=== PATIENT | female | born 1940 | race Caucasian/White ===

== ENCOUNTER 2020-05-14 09:21 | Inpatient (IN) ==
--- NOTE | 2020-04-26 11:00 | PAT Medication Instructions ---
Medication Instructions Date of Service April 26, 2020 Home Medications aspirin 81 mg PO HS calcium carbonate-vitamin D3 [Calcium + D] 2 tab PO QAM enalapril maleate [Vasotec] 10 mg PO BID magnesium 250 mg PO QAM simvastatin 20 mg PO HS DO NOT take the morning of surgery calcium carbonate-vitamin D3 [Calcium + D] 2 tab PO QAM enalapril maleate [Vasotec] 10 mg PO BID magnesium 250 mg PO QAM Take evening before surgery aspirin 81 mg PO HS enalapril maleate [Vasotec] 10 mg PO BID simvastatin 20 mg PO HS Other Notes If you have any questions please call us at [phone] or [phone] or [phone] or [phone]
--- NOTE | 2020-04-29 14:21 | Anesthesiology Consultation ---
Date of Service April 29, 2020 Assessment & Plan (1) Encounter for pre-operative examination: COVID Status: As of 04/29 assessment, patient denies travel to endemic area, known exposure/sick contacts, or symptoms of COVID19. Patient instructed that they and their household members must follow strict social distancing guidelines, wear a mask in public and avoid travel for 14 days prior to surgery. Preoperative COVID19 testing to be completed prior to surgery per surgeon's arr angements (pt reports 05/07). Patient made aware to self-isolate as much as possible between COVID testing and surgery. Chart Review Chart Review: Acceptable Risk for Surgery (pending surgeon ordered PCP clearance 05/03) and Patient seen in Pre Admission Testing Teaching & Discussion Instructed NPO after midnight before surgery, except medications with 15 cc of water. Medication instructions provided according to the PAT guidelines. History Surgery Operation Date: 05/14/20 10:05 Proposed Procedures p L3-S1 Decompression and Fusion, Spinal Cord Monitoring - Byron Aguirre, Height/Weight Height: 5 ft 7 in Weight: 58.9 kg Allergies Allergy/AdvReac Type Severity Reaction Status Date / Time No Known Allergies Allergy Verified 04/16/20 14:00 Medications Home Medications Medication Instructions Recorded Confirmed Last Taken aspirin 81 mg PO HS 04/16/20 04/16/20 Unknown calcium carbonate-vitamin D3 2 tab PO QAM 04/16/20 04/16/20 Unknown [Calcium + D] enalapril maleate [Vasotec] 20 mg PO BID 04/16/20 04/29/20 Unknown magnesium 250 mg PO QAM 04/16/20 04/16/20 Unknown simvastatin 20 mg PO HS 04/16/20 04/16/20 Unknown Past Medical History Medical History (Updated 04/30/20 @ 10:29 by Flakito Booth) Anxiety Hyperlipidemia Hypertension Lumbar herniated disc Stroke Pt reports incidental finding on imaging, no known event. 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 Physical Exam Vital Signs BP: 151/74 P: 88bpm SPO2: 96% RA T: 98.7 F R: 16 Constitutional + thin ENMT Mouth: no dental restorations, no chipped teeth and no loose teeth Thyromental Distance: < 3.5 Finger Breadths (3) Mallampati Class: II Neck normal visual inspection; neck extension not limited Respiratory normal respiratory effort, lungs clear to auscultation Cardiovascular RRR, no murmur, no edema Testing Laboratory Results 04/29/20 14:35 04/29/20 14:35 PT 11.5 Seconds (9.0-12.0) 04/29/20 14:35 INR 1.1 (0.9-1.1) 04/29/20 14:35 APTT 25.3 Seconds (21.0-31.0) 04/29/20 14:35 Urine Color Yellow 04/29/20 14:35 Urine Appearance Clear (Clear) 04/29/20 14:35 Urine pH 6.0 (4.5-7.5) 04/29/20 14:35 Ur Specific [place] 1.021 (1.000-1.030) 04/29/20 14:35 Urine Protein Negative (Negative) 04/29/20 14:35 Urine Glucose (UA) Negative (Negative) 04/29/20 14:35 Urine Ketones Trace (Negative) H 04/29/20 14:35 Urine Nitrite Negative (Negative) 04/29/20 14:35 Ur Leukocyte Esterase Negative (Negative) 04/29/20 14:35 Urine WBC (Auto) 0 /hpf (0-5) 04/29/20 14:35 Urine RBC (Auto) 5-10 /hpf (0-4) H 04/29/20 14:35 U Hyaline Cast (Auto) 1-5 /lpf (0-5) 04/29/20 14:35 U Epithel Cells (Auto) 0-5 /lpf (0-5) 04/29/20 14:35 Urine Bacteria (Auto) Negative (Negative) 04/29/20 14:35 Blood Type O Positive 04/29/20 14:35 Antibody Screen NEGATIVE 04/29/20 14:35 Electrocardiogram Date: 04/29/20 Findings: + NSR @ (76bpm) Chest X-Ray Date: 04/29/20 Findings: + NAD Mild cardiomegaly.
[2020-04-29 15:14] LABS: INR 1.1 (0.9-1.1); Partial Thromboplastin Ratio 0.9; Partial Thromboplastin Time 25.3 Seconds (21.0-31.0); Prothrombin Time 11.5 Seconds (9.0-12.0)
--- NOTE | 2020-04-29 15:32 | XRay Report ---
XR chest Pre-admission PA/Lat CLINICAL HISTORY: Preoperative evaluation. COMPARISON STUDY: No previous studies for comparison. FINDINGS: Lung volumes are at the upper limits of normal. Minimal opacity along the left heart border likely reflects atelectasis. There is no consolidation to suggest pneumonia. There is no evidence fo r pulmonary edema. Mild cardiomegaly is noted. IMPRESSION: No acute cardiopulmonary findings. Mild cardiomegaly. ACT 112: Negative or not required by law. Electronically signed by: Adiel Bruce M.D. 04/29/2020 3:31 PM
[2020-04-29 15:40] LABS: Appearance Urine Clear (Clear); Bacteria Urine Automated Negative (Negative); Bilirubin Urine Negative (Negative); Blood Urine Trace (Negative); Color Urine Yellow; Epithelial Cell Urine Auto 0-5 /lpf (0-5); Glucose Urine UA Negative (Negative); Ketones Urine Trace (Negative); Leukocyte Esterase Urine Negative (Negative); Nitrite Urine Negative (Negative); Protein Urine Negative (Negative); Specific Gravity Urine 1.021 (1.000-1.030); Urobilinogen Urine Negative (Negative); WBC Urine Automated 0 /hpf (0-5)
[2020-04-29 15:53] LABS: Basophils # (auto) 0.01 K/uL (0-0.2); Basophils % (auto) 0.1 %; Eosinophils # (auto) 0.03 K/uL (0-0.5); Eosinophils % (auto) 0.3 %; Hematocrit (blood only) 41.9 % (37-47); Hemoglobin 13.7 g/dL (12.0-16.0); Immature Granulocytes # (auto) 0.01 K/uL (0.00-0.02); Immature Granulocytes % (auto) 0.1 %; Lymphocytes # (auto) 1.88 K/uL (1.2-3.4); Lymphocytes % (auto) 21.3 %; Mean Corpuscular Hemoglobin 30.7 pg (25-34); Mean Corpuscular Hgb Conc 32.7 g/dL (32-36); Mean Corpuscular Volume 93.9 fL (80-100); Mean Platelet Volume 11.1 fL (7.4-10.4); Monocytes # (auto) 0.42 K/uL (0.11-0.59); Monocytes % (auto) 4.8 %; Neutrophils # (auto) 6.49 K/uL (1.4-6.5); Neutrophils % (auto) 73.4 %; Platelet Count 207 K/uL (130-400); RDW Standard Deviation 44.6 fL (36.4-46.3); Red Blood Count 4.46 M/uL (4.2-5.4); White Blood Count 8.84 K/uL (4.8-10.8)
[2020-04-29 15:57] LABS: BUN Creatinine Ratio 23.9 (10-20); Calcium 9.2 mg/dl (8.5-10.1); Creatinine Clr Calc Pharmacy 46.9 ml/min; Est GFR (African American) 69.1; Est GFR (Non-African American) 59.6; Potassium 3.7 mmol/L (3.5-5.1)
--- NOTE | 2020-04-29 16:51 | Electrocardiogram Report ---
Test Reason : Blood Pressure : / mmHG Vent. Rate : 076 BPM Atrial Rate : 076 BPM P-R Int : 146 ms QRS Dur : 074 ms QT Int : 394 ms P-R-T Axes : -26 -04 030 degrees QTc Int : 443 ms Normal sinus rhythm Normal ECG No previous ECGs available Confirmed by Max Quick ([id number]) on 04/29/2020 4:51:34 PM Referred By: Byron Aguirre Confirmed By:Beau Quick
[~2020-05-14 09:21] MED LIST: LR 15ML/HR IV SCH; ceFAZolin 1000MG 1,000 MG/7.5 ML SYR IV SCH
[2020-05-14] MEDS ORDERED: HYDROmorphone INJ 2 MG/ML SYR/VIAL ONE (09:36)
[2020-05-14] MEDS ORDERED: MIDAZOLAM HCL 1 MG/ML 2ML VIAL ONE (09:36)
[2020-05-14] MEDS: ACETAMINOPHEN 500 MG TAB PO SCH ×2 (09:54→10:15)
[2020-05-14] MEDS: CeleBREX 200 MG CAP PO SCH ×2 (09:55→10:15)
[2020-05-14] MEDS: GABAPENTIN 300 MG CAP PO SCH ×2 (09:55→10:15)
[2020-05-14] MEDS ORDERED: PROPOFOL IV EMULSION 10 MG/ML 20 ML VIAL IV ONE (12:16)
[2020-05-14] MEDS ORDERED: ONDANSETRON INJ 2 MG/ML 2 ML VIAL ONE (12:16)
[2020-05-14] MEDS ORDERED: DEXAMETHASONE SOD INJ 4 MG/ML VIAL ONE (12:16)
[2020-05-14] MEDS ORDERED: LIDOCAINE HCL 2% 2 ML VIAL/AMP(20MG/ML) INFIL ONE (12:16)
[2020-05-14] MEDS ORDERED: ROCURONIUM BROMIDE 10 MG/ML 5 ML VIAL IV ONE (12:16)
--- NOTE | 2020-05-14 12:18 | History & Physical Bridge Note ---
Date of Service May 14, 2020 History & Physical Bridge Note I have examined the patient, reviewed the History & Physical and in the interval since the performance of the History & Physical I have noted the following changes of clinical significance: no changes noted
--- NOTE | 2020-05-14 12:19 | History & Physical Report ---
Date of Service May 14, 2020 Assessment & Plan (1) Neurogenic claudication due to lumbar spinal stenosis: Admission and Anticipated Discharge Date Admission Date: L3-S1 decompression fusion History of Present Illness Chief Complaint: Back and bilateral leg pain Primary Care Provider: Erica Uribe This is a 72-year-old female who presents with chronic persistent back and leg pain. Failing course of nonoperative care she is here for the above-mentioned procedure. Allergies Allergy/AdvReac Type Severity Reaction Status Date / Time No Known Allergies Allergy Verified 04/16/20 14:00 Home Medications Medication Instructions Recorded Confirmed Type aspirin 81 mg PO HS 04/16/20 05/14/20 History calcium carbonate-vitamin D3 2 tab PO QAM 04/16/20 05/14/20 History [Calcium + D] enalapril maleate [Vasotec] 20 mg PO BID 04/16/20 05/14/20 History magnesium 250 mg PO QAM 04/16/20 05/14/20 History simvastatin 20 mg PO HS 04/16/20 05/14/20 History Past Med/Surg History Medical History (Updated 05/14/20 @ 12:19 by Byron Aguirre DO) Anxiety Hyperlipidemia Hypertension Lumbar herniated disc Stroke Pt reports incidental finding on imaging, no known event. 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 Hx of cataract surgery right and left Social History Smoking Status: Never smoker Second Hand Exposure: No; Do You Dip or Chew Tobacco: No; Tobacco Cessation Education Requested by Patient: No Hx Alcohol Use: No Hx Substance Use: No Preferred Language: Arabic Communication Ability: Effective Brand Marketing Specialist Required: No Beliefs That Will Affect Care: None Current Living Situation: Spouse Other Information That Helps Us Care for You: No Feels Safe at Home: Yes Safety Concerns: Feels Safe At This Time Assistive Devices: Glasses Physical Exam Physical Exam: Patient is alert and oriented Heart regular rate and rhythm Lungs clear to auscultation Results & Data ([facility]) Vital Signs (Past 12 Hours) Vital Signs Temp Pulse Resp BP Pulse Ox 05/14/20 09:57 36.8 C 74 20 162/85 H 99
[2020-05-14] MEDS ORDERED: BACITRACIN INJ 50,000 UNIT VIAL ONE (12:44)
[2020-05-14] MEDS ORDERED: BUPIVACAINE/EPINEPHRINE 0.5% MPF 1:200,000 30 ML VIAL ONE (12:44)
[2020-05-14] MEDS ORDERED: ATROPINE SULFATE 0.1 MG/ML 10ML SYR IV PRN (13:01)
[2020-05-14] MEDS ORDERED: ONDANSETRON INJ 2 MG/ML 2 ML VIAL IV PRN ×2 (13:01→17:06)
[2020-05-14] MEDS ORDERED: ePHEDrine sulfate 50 MG/ML AMP IV PRN (13:01)
[2020-05-14] MEDS ORDERED: fentaNYL citrate 100 MCG/2 ML VIAL IV PRN (13:01)
[2020-05-14] MEDS ORDERED: HYDROmorphone INJ 1 MG/ML SYRINGE IV PRN ×2 (13:01→17:06)
[2020-05-14] MEDS ORDERED: ALBUMIN HUMAN 5% 12.5 GM/250 ML VIAL IV ONE ×2 (13:11→14:34)
[2020-05-14] MEDS ORDERED: FLOSEAL HEMOSTATIC MATRIX 10ML TOP ONE (15:18)
[2020-05-14] MEDS ORDERED: NEOSTIGMINE METHYLSULFATE 1 MG/ML 10ML VIAL ONE (15:19)
[2020-05-14] MEDS ORDERED: GLYCOPYRROLATE 0.2 MG/ML VIAL ONE (15:19)
--- NOTE | 2020-05-14 15:25 | Operative Report ---
Post Operative Report Pre & Post Diagnosis Operation Date: 05/14/20 10:55 Pre-Op Diagnosis: Neurogenic claudication due to lumbar spinal stenosis Spondylolisthesis L4-L5 Herniated nucleus pulposus L4-L5 Post-Op Diagnosis: Same I identified the patient and participated in the time-out.: Yes Procedure Operation Date: 05/14/20 10:55 Actual Procedures #1 lumbar compression with bilateral medial facetectomies and foraminotomies L3- 4 L4-5 L5-S1. #2 posterior spinal fusion L3-4 L4-5 L5-S1. #3 placement posterior segmental instrumentation L3-S1. #4 interbody fusion L4-5. #5 placement peek cage 12 x 22 mm at L4-5 #6 placement locally harvested morselized autograft in the posterior lateral gutters. #7 placement infuse collagen sponge, master graft in the posterior lateral gutters and ostial amp interbody space. Surgeon Byron Aguirre, Appliance Repairer Kishor Bran Estimated Blood Loss 250 Findings Consistent with Post-Op Diagnosis Specimens None Indications This is a 80-year-old female presents with above-mentioned diagnosis after failing course of nonoperative care she is here for the above-mentioned procedure. Description of Procedure Patient was met with identified informed consent obtained. Patient was then taken to the operative suite underwent an patient placed in a prone position on Yonathan table on top of the Cuco frame. All bony prominences well-padded eyes inspected to ensure no external pressure placed upon the. This point the lumbar spine was prepped and draped in normal sterile fashion. Sharp dissection with the assistance of Bovie cautery was performed down to and exposing the lamina and transverse processes of L3-L4-L5 and sacral ala bilaterally. From a caudal cephalad fashion complete laminectomy of L5 L4 L3 is performed including bilateral medial facetectomies and foraminotomies addressing severe spinal stenosis. Pedicle screws were then placed in L3-L4-L5 and S1 levels bilaterally with assistance of fluoroscopy and appropriate size clay placed. By way of a transforaminal approach on the left complete discectomy of L4-5 was performed endplates curetted to subcortical bleeding bone. A 12 x 22 mm peek cage filled with osteobone graft was then tapped in position. Rods were then locked in final position bilaterally. The transverse processes of L3-L4-L5 and sacral ala burred to subcortical bleeding bone. Infuse collagen sponge master graft local autograft was then placed in posterior gutters. 15 round VIVIANA drain inserted. Incision was then closed with 1 Vicryl the fascia 2-0 Vicryl subcutaneously and 4 Monocryl for final skin closure. Steri-Strip sterile dressings placed. Patient will continue PACU stable condition. Please note spinal cord monitoring was utilized that the procedure no changes noted. Lastly Kishor lowry was present at the entire procedure involved in patient positioning complex portions of the surgery and final skin closure. I attest to the content of the Intraoperative Record and any orders documented therein. Any exceptions are noted below.
--- NOTE | 2020-05-14 15:32 | Fluoroscopy Report ---
FL lumbar spine 2-3V CLINICAL HISTORY: L3-S1 DECOMPRESSION AND FUSION COMPARISON STUDY: None. FLUOROSCOPY TIME: 27 seconds. FINDINGS: 2 fluoroscopic spot images of the lumbar spine demonstrate posterior decompression and fusi on from L3 through S1 with pedicle screws and rods. The hardware appears intact. IMPRESSION: Fluoroscopy provided for L3-S1 decompression and fusion ACT 112: Negative or not required by law. Electronically signed by: Jamar Larsen M.D. 05/14/2020 3:31 PM
--- NOTE | 2020-05-14 16:49 | Anesthesiology Progress Note ---
Date of Service May 14, 2020 Anesthesia Post Procedure Vital Signs Vital Signs: Temp Pulse Pulse Resp BP Pulse Ox 05/14/20 16:45 80 18 151/69 H 98 05/14/20 16:35 36.5 C 89 15 169/76 H 98 05/14/20 16:25 77 15 143/60 H 99 05/14/20 16:15 84 16 165/81 H 99 05/14/20 16:06 36.7 C 77 14 149/77 H 99 05/14/20 09:57 36.8 C 74 20 162/85 H 99 Pain Intensity Lower Back: Pain Intensity: 3 Transfer of Care Handoff Completed per policy Notes Mental Status: alert / awake / arousable Patient Amnestic to Procedure: Yes Nausea / Vomiting: adequately controlled Pain: adequately controlled Airway Patency, RR, SpO2: stable & adequate BP & HR: stable & adequate Hydration State: stable & adequate Anesthetic Complications: no major complications apparent
[2020-05-14] MEDS ORDERED: ONDANSETRON 4 MG OD TAB PO PRN (17:06)
[2020-05-14] MEDS ORDERED: SOD PHOSPHATE/SOD BIPHOSPHATE ENEMA 132 ML BTL PR PRN (17:06)
[2020-05-14] MEDS ORDERED: HYDROmorphone INJ 0.5 MG/0.5 ML SYR IV PRN (17:06)
[2020-05-14] MEDS ORDERED: bisacodyL 10 MG SUPP PR PRN (17:06)
[2020-05-14] MEDS ORDERED: diphenhydrAMINE Capsule 25 MG CAP PO PRN (17:06)
[2020-05-14] MEDS ORDERED: NALOXONE HCL 0.4 MG/1 ML VIAL/CARP IV PRN (17:06)
[2020-05-14] MEDS ORDERED: ACETAMINOPHEN 500 MG TAB PO PRN (17:06)
[2020-05-14] MEDS ORDERED: MAGNESIUM HYDROXIDE SUSP 30 ML UDC PO PRN (17:06)
[2020-05-14] MEDS ORDERED: oxyCODONE HCL IR 5 MG TAB (IMMEDIATE RELEASE) PO PRN (17:06)
[2020-05-14] MEDS ORDERED: hydrOXYzine HCl 25 MG TAB PO PRN (17:06)
[2020-05-14] MEDS ORDERED: DO NOT ADMINISTER PNEUMOCOCCAL VACCINE PRN (17:06)
[2020-05-14] MEDS ORDERED: FAMOTIDINE 20 MG TAB PO PRN (17:06)
[2020-05-14] MEDS ORDERED: PROMETHAZINE HCL 12.5 MG in SODIUM CHLORIDE 0.9% 50 ML IV PRN (17:06)
[2020-05-14] MEDS ORDERED: traMADol HCL 50 MG TABLET PO PRN (17:06)
[2020-05-14] MEDS ORDERED: METOCLOPRAMIDE HCL INJ 5 MG/ML 2 ML VIAL IV PRN (17:06)
[2020-05-14] MEDS ORDERED: LORazepam 0.5 MG TAB PO PRN (17:06)
[2020-05-14] MEDS ORDERED: ALUMINUM/MAGNESIUM SUSP 30 ML UDC PO PRN (17:06)
[2020-05-14] MEDS ORDERED: DO NOT ADMINISTER FLU VACCINE PRN (17:06)
[2020-05-14] MEDS ORDERED: ACETAMINOPHEN 1,000 MG/100 ML VIAL IV PRN (17:06)
[2020-05-14] MEDS ORDERED: LORazepam 0.5 MG/1 ML VIAL IV PRN (17:06)
[2020-05-14] MEDS: SODIUM CHLORIDE 0.9% 1000ML 1,000 ML IV SCH (18:03)
--- NOTE | 2020-05-14 18:08 | Consultation ---
Date of Consultation May 14, 2020 Assessment & Plan (1) Neurogenic claudication due to lumbar spinal stenosis: Status post L3-S1 decompression fusion by Dr. Aguirre POD #0 EBL 250 mL; VIVIANA drain 145 mL Tolerated procedure well, postop drowsiness Pain/wound management per Ortho Activity and therapy as directed by Ortho Encourage incentive spirometry and wean O2 as able Monitor H&H (2) Hypertension: BP 142/80 Continue enalapril Controlled and monitor (3) Hyperlipidemia: Continue statin (4) Elevated serum glucose: preop glucose 164 screen for DM with a1c in a.m. (5) Stroke: hx of remote cva, found on imaging No residual deficit Continue ASA and statin (6) DVT prophylaxis: SCD/TEDS, ASA Disposition: admit to medical, per primary Follow up: Dr. Uribe, [place], PA, upon discharge Pt was seen and examined in collaboration with Dr. Alcantar, please see addendum Thank you for this consultation. We will follow the patient with you during their hospital stay. You can reach a [facility] via pager @ [phone]. Supervising Physician Co-Signing Physician Notes Patient is a 80-year-old female with history of hypertension, dyslipidemia and other medical problems was seen and examined postop after having lumbar surgery for neurogenic claudication due to lumbar spinal stenosis by Dr. Aguirre. She offers no complaints. Pain at surgical site is controlled. Reports poor appetite currently. Please review HPI for complete details. On exam patient is thin, frail, no apparent distress, lungs are clear to auscultation, normal br eath sounds, S1-S2, no murmur, abdomen soft, nontender, normal bowel sounds, no pedal edema, back--surgical site in dressing,+ drain, alert, awake, oriented, complete neurological exam is not performed due to postoperative state. Patient is consulted for postop medical management for hypertension, dyslipidemia, elevated glucose levels. Agree with continuing home medications for hypertension, dyslipidemia. Will check HbA1c to rule out diabetes. Wean off of oxygen as able. Continue incentive spirometry. Monitor for postop anemia with CBC. Continue bowel regimen to prevent constipation. Wound care, activity, DVT prophylaxis and pain control as per primary team. Advance diet as tolerated. I personally reviewed the record. Patient is interviewed and examined at bedside. Patient's care is coordinated with Paula Espinoza PA-C. Please refer to the documentation above for details of patient's presentation and for discussion of other issues. History of Present Illness Requesting Physician: Dr. Aguirre Reason for Consultation: Postop medical management Attending Physician: Byron Aguirre, DO History of Present Illness This is a 80-year-old female who has significant past medical history of HTN, HLD, osteoporosis, history of CVA incidental finding on imaging without residual deficit who presents for elective lumbar procedure by Dr. Aguirre. She underwent L3-S1 decompression fusion. She is very drowsy but otherwise tolerated the procedure well. Currently she denies any complaints or pain. She denies fever, chills, sweats, lightheadedness, nasal, chest pain, shortness breath, cough, nausea, vomiting, abdominal pain. She has Crum catheter in place. Nurses at bedside and offers no concerns. Patient has prior history of cataract surgery which nurse states took her several hours to awake from anesthesia. Patient is drowsy but answers all questions appropriately. In regards to her PMH she does have history of hypertension controlled with enalapril, last dose was last evening. She also has history of CVA which was found on an incidental finding, but patient did not have any symptoms. Despite that fact she is on aspirin and statin therapy. Allergies Allergy/AdvReac Type Severity Reaction Status Date / Time No Known Allergies Allergy Verified 04/16/20 14:00 Home Medications Medication Instructions Recorded Confirmed Type aspirin 81 mg PO HS 04/16/20 05/14/20 History calcium carbonate-vitamin D3 2 tab PO QAM 04/16/20 05/14/20 History [Calcium + D] enalapril maleate [Vasotec] 20 mg PO BID 04/16/20 05/14/20 History magnesium 250 mg PO QAM 04/16/20 05/14/20 History simvastatin 20 mg PO HS 04/16/20 05/14/20 History Patient History Medical History (Updated 05/14/20 @ 18:16 by Paula Espinoza PA-C) Anxiety Hyperlipidemia Hypertension Lumbar herniated disc Stroke Pt reports incidental finding on imaging, no known event. 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 Hx of cataract surgery right and left Family History (Updated 05/14/20 @ 18:05 by Paula Espinoza PA-C) Denies family history of Stroke Social History Smoking Status: Never smoker Second Hand Exposure: No; Do You Dip or Chew Tobacco: No; Tobacco Cessation Education Requested by Patient: No Hx Alcohol Use: No Hx Substance Use: No Preferred Language: Ecuadorean Communication Ability: Effective Web Page Designer Required: No Beliefs That Will Affect Care: None Current Living Situation: Spouse Other Information That Helps Us Care for You: No Feels Safe at Home: Yes Safety Concerns: Feels Safe At This Time Assistive Devices: Glasses Review of Systems Review of Systems: All systems reviewed & are unremarkable except as noted in HPI & below Physical Exam Physical Exam: Constitutional: WD/WN, elderly, female, very drowsy but arouses to verbal stimuli and answers all questions appropriately, vitals as above, NAD, sitting up in bed, pleasant, conversing easily Head: Normocephalic, Atraumatic Eyes: PERRL, conjunctivae normal, anicteric sclerae ENMT: external ear and nose normal, oropharynx normal Neck: trachea midline, no thyromegaly normal visual inspection Respiratory: normal respiratory effort, lungs clear to auscultation, no wheeze, rales, rhonchi. Normal insp/exp effort, no accessory muscle use Cardiovascular: RRR, 1/6 ROBERTA noted cardiac apex, no edema, bilateral SCDs and teds in place, vessels: no JVD or carotid bruit Chest: normal inspection of chest Abdomen: normal bowel sounds, soft, nontender, no hepatosplenomegaly Musculoskeletal: no cyanosis or clubbing, active range of motion to extremities x4, VIVIANA drain with serosanguineous drainage Skin: no rashes, warm and dry normal turgor Neurologic: PERRL, EOMI, accommodation nl, no face palsy, no dysarthria CN's II-XI intact bilaterally and moves all extremities Psychiatric: A+Ox3, drowsy, euthymic affect : deferred Results & Data ([facility]) Vital Signs (Past 12 Hours) Vital Signs Temp Pulse Pulse Resp BP Pulse Ox 05/14/20 17:30 36.3 C L 89 17 130/71 97 05/14/20 16:45 80 18 151/69 H 98 05/14/20 16:35 36.5 C 89 15 169/76 H 98 05/14/20 16:25 77 15 143/60 H 99 05/14/20 16:15 84 16 165/81 H 99 05/14/20 16:06 36.7 C 77 14 149/77 H 99 05/14/20 09:57 36.8 C 74 20 162/85 H 99 Laboratory Results Preop lab work 04/29/2020 H&H 13.7 and 41.9, platelet 207, BUN 22, creatinine 1.92, GFR 59.6 glucose 164 Diagnostic Findings Lumbar Xray: IMPRESSION: Fluoroscopy provided for L3-S1 decompression and fusion CXR: IMPRESSION: No acute cardiopulmonary findings. Mild cardiomegaly. Medications Administered Lactated Ringer's (Lr) 1,000 mls @ 15 mls/hr IV .Q24H JOVITA Stop: 05/15/20 05:59 Last Infusion: 05/14/20 13:08 Dose: 0 mls/hr Documented by: [id number] Admin: 05/14/20 09:53 Dose: 15 mls/hr Documented by: [id number] Sodium Chloride (Nss 1000ml) 1,000 mls @ 100 mls/hr IV .Q10H JOVITA Stop: 06/13/20 17:14 Last Admin: 05/14/20 18:03 Dose: 100 mls/hr Documented by: [id number] Discontinued Medications Acetaminophen (Acetaminophen 500 Mg Tab) 1,000 mg PO PREOP JOVITA Stop: 05/14/20 18:00 Last Admin: 05/14/20 10:15 Dose: 1,000 mg Documented by: [id number] Admin: 05/14/20 09:54 Dose: 1,000 mg Documented by: [id number] Bacitracin (Bacitracin Inj 50,000 Unit Vial) Confirm Administered Dose 50,000 units .ROUTE .STK-MED ONE Stop: 05/14/20 12:45 Last Admin: 05/14/20 14:13 Dose: 50,000 units Documented by: [id number] Bupivacaine HCl/Epinephrine Bitart (Bupivacaine/Epinephrine 0.5% Mpf 1:200,000 30 Ml Vial) Confirm Administered Dose 30 ml .ROUTE .STK-MED ONE Stop: 05/14/20 12:45 Last Admin: 05/14/20 14:12 Dose: 30 ml Documented by: [id number] Celecoxib (Celebrex 200 Mg Cap) 200 mg PO PREOP JOVITA Stop: 05/14/20 18:00 Last Admin: 05/14/20 10:15 Dose: 200 mg Documented by: [id number] Admin: 05/14/20 09:55 Dose: 200 mg Documented by: [id number] Gabapentin (Gabapentin 300 Mg Cap) 300 mg PO PREOP JOVITA Stop: 05/14/20 18:00 Last Admin: 05/14/20 10:15 Dose: 300 mg Documented by: [id number] Admin: 05/14/20 09:55 Dose: 300 mg Documented by: [id number] Cefazolin Sodium (Ancef 1000mg) 1,000 mg in 7.5 mls @ 2.5 mls/min IV PREOP JOVITA; Protocol Stop: 05/14/20 18:00 Last Admin: 05/14/20 13:08 Dose: 2.5 mls/min Documented by: [id number] Miscellaneous ( Floseal Hemostatic Matrix 10ml) 24 ml TOP ONCE ONE Stop: 05/14/20 15:19 Last Admin: 05/14/20 15:20 Dose: 24 ml Documented by: [id number] ECG Rate (beats per minute): 76 Rhythm: normal sinus
[2020-05-14] MEDS: ENALAPRIL MALEATE 10 MG TAB PO SCH (20:03)
[2020-05-14] MEDS: DOCUSATE SODIUM/SENNA 50/8.6MG TAB PO SCH (20:03)
[2020-05-14] MEDS: ASPIRIN 81 MG ECTAB PO SCH (20:03)
[2020-05-14] MEDS: SIMVASTATIN 20 MG TAB PO SCH (20:03)
[2020-05-14] MEDS: ceFAZolin 1000MG 1,000 MG/7.5 ML SYR IV SCH (20:06)
[2020-05-15] MEDS: SODIUM CHLORIDE 0.9% 1000ML 1,000 ML IV SCH (04:05)
[2020-05-15] MEDS: ceFAZolin 1000MG 1,000 MG/7.5 ML SYR IV SCH (05:16)
[2020-05-15] MEDS: POLYETHYLENE (MIRALAX) 17 GM PACK PO SCH ×3 (05:29→17:33)
[2020-05-15 06:49] LABS: Hematocrit (blood only) 31.9 % (37-47); Hemoglobin 10.3 g/dL (12.0-16.0); Immature Granulocytes # (auto) 0.02 K/uL (0.00-0.02); Immature Granulocytes % (auto) 0.2 %; Lymphocytes # (auto) 0.77 K/uL (1.2-3.4); Lymphocytes % (auto) 7.8 %; Mean Corpuscular Hemoglobin 30.8 pg (25-34); Mean Corpuscular Hgb Conc 32.3 g/dL (32-36); Mean Corpuscular Volume 95.5 fL (80-100); Mean Platelet Volume 10.3 fL (7.4-10.4); Monocytes # (auto) 0.93 K/uL (0.11-0.59); Monocytes % (auto) 9.4 %; Neutrophils # (auto) 8.16 K/uL (1.4-6.5); Neutrophils % (auto) 82.6 %; Platelet Count 185 K/uL (130-400); RDW Coefficient of Variation 12.9 % (11.5-14.5); Red Blood Count 3.34 M/uL (4.2-5.4); White Blood Count 9.88 K/uL (4.8-10.8)
[2020-05-15 07:22] LABS: Estimated Average Glucose 105 mg/dl; Hemoglobin A1C 5.3 % (4.5-5.6)
[2020-05-15 07:24] LABS: BUN Creatinine Ratio 23.7 (10-20); Calcium 8.1 mg/dl (8.5-10.1); Creatinine Clr Calc Pharmacy 44.4 ml/min; Est GFR (African American) 64.8; Est GFR (Non-African American) 55.9; Potassium 4.2 mmol/L (3.5-5.1)
[2020-05-15] MEDS: ENALAPRIL MALEATE 10 MG TAB PO SCH (08:50)
[2020-05-15] MEDS: MAGNESIUM OXIDE 400 MG TAB PO SCH (08:50)
[2020-05-15] MEDS: CALCIUM 600MG + VIT D 400 IU TAB PO SCH (08:50)
--- NOTE | 2020-05-15 09:32 | Orthopedic Progress Note ---
Date of Service May 15, 2020 Assessment & Plan (1) Neurogenic claudication due to lumbar spinal stenosis: Admission and Anticipated Discharge Date Admission Date: May 14, 2020 This time initiate physical therapy ambulation and transfers hopefully discharge home Sunday. Subjective Patient's back pain is well controlled. She denies any leg pain. Physical Exam Physical Exam: Patient is comfortable in bed has excellent strength testing. Results & Data ([facility]) Vital Signs (Past 12 Hours) Vital Signs Temp Pulse Pulse Resp BP Pulse Ox 05/15/20 07:38 36.5 C 70 18 112/65 95 05/15/20 04:00 36.4 C L 73 18 130/71 99 05/15/20 00:44 36.2 C L 05/14/20 23:25 35.4 C L 70 18 145/83 H 98
--- NOTE | 2020-05-15 15:41 | Hospitalist Progress Note ---
Date of Service May 15, 2020 Assessment & Plan (1) Neurogenic claudication due to lumbar spinal stenosis: Status post L3-S1 decompression fusion by Dr. Aguirre POD #1 Tolerated procedure well, postop drowsiness, nausea this AM Pain/wound management per Ortho Activity and therapy as directed by Ortho Encourage incentive spirometry and wean O2 as able, pt reports IS every hour Acute blood loss anemia/ post-op anemia blood loss expected post op, no need for transfusion at this time Hgb down to 10.3, pre-op 13.7 monitor H&H (2) Hypertension: BP controlled 120/70 this AM Continued enalapril this PM lower 108/55, will hold PM dose Continue to monitor BP (3) Hyperlipidemia: Continue statin (4) Elevated serum glucose: preop glucose 164 screen for DM, current HbA1c 5.3% (5) Stroke: hx of remote cva, found on imaging No residual deficit Continue ASA and statin (6) DVT prophylaxis: SCD/TEDS, ASA Disposition: admit to medical, per primary Follow up: Dr. Uribe, [place], [place], upon discharge Thank you for this consultation. We will follow the patient with you during their hospital stay. You can [facility] a [facility] via pager @ [phone]. Admission and Anticipated Discharge Date Admission Date: May 14, 2020 Subjective Pt being in seen in consultation for med. management after orthopedic surgery. Pt is laying in bed in NAD. Pt is comfortable, talking on the phone with her family. No dizziness or lightheadedness. Hgb down to 10.3. Crum catheter placed. No current pain issues, back is not bothering her at this time, moving extremities. No troubles breathing or chest pain, no abd. pain but reported nausea this AM, now resolved. Review of Systems Review of Systems: All systems reviewed & are unremarkable except as noted in HPI & below Constitutional: no fever and no chills Respiratory: no cough and no dyspnea Cardiovascular: no chest pain and no palpitations Gastrointestinal: no abdominal pain, no nausea and no vomiting Physical Exam Physical Exam: Constitutional: WD/WN, elderly, female, answers all questions appropriately, vitals as above, NAD, sitting up in bed, talking on the phone w/ family, pleasant, conversing easily Head: Normocephalic, Atraumatic Eyes: PERRL, EOMI, conjunctivae normal, anicteric sclerae ENMT: external ear and nose normal, oropharynx normal Neck: trachea midline, no thyromegaly normal visual inspection Respiratory: normal respiratory effort, lungs clear to auscultation, no wheeze, rales, rhonchi. Normal insp/exp effort, no accessory muscle use Cardiovascular: RRR, 1/6 ROBERTA noted cardiac apex, no edema, bilateral SCDs and teds in place, vessels: no JVD or carotid bruit Chest: normal inspection of chest Abdomen: normal bowel sounds, soft, nontender, nondistended Musculoskeletal: no cyanosis or clubbing, active range of motion to extremities x4, VIVIANA drain with serosanguineous drainage : Crum catheter placed, clear yellow urine Skin: no rashes, warm and dry normal turgor Neurologic: PERRL, EOMI, no face palsy, no dysarthria CN's II-XI intact bilaterally and moves all extremities Psychiatric: A+Ox3, drowsy, euthymic affect Results & Data Results & Data ([facility]) Vital Signs (Past 12 Hours) Vital Signs Temp Pulse Resp BP Pulse Ox 05/15/20 11:07 36.8 C 80 20 120/70 98 05/15/20 07:38 36.5 C 70 18 112/65 95 05/15/20 04:00 36.4 C L 73 18 130/71 99 Laboratory Results 05/15/20 05/15/20 05/15/20 Range/Units 06:27 06:27 06:27 WBC 9.88 (4.8-10.8) K/uL RBC 3.34 L (4.2-5.4) M/uL Hgb 10.3 L (12.0-16.0) g/dL Hct 31.9 L (37-47) % MCV 95.5 (80-100) fL MCH 30.8 (25-34) pg MCHC 32.3 (32-36) g/dL RDW Std Deviation 45.0 (36.4-46.3) fL RDW Coeff of Pam 12.9 (11.5-14.5) % Plt Count 185 (130-400) K/uL MPV 10.3 (7.4-10.4) fL Immature Gran % (Auto) 0.2 % Neut % (Auto) 82.6 % Lymph % (Auto) 7.8 % [place] % (Auto) 9.4 % Eos % (Auto) 0.0 % Baso % (Auto) 0.0 % Neut # (Auto) 8.16 H (1.4-6.5) K/uL Lymph # (Auto) 0.77 L (1.2-3.4) K/uL [place] # (Auto) 0.93 H (0.11-0.59) K/uL Eos # (Auto) 0.00 (0-0.5) K/uL Baso # (Auto) 0.00 (0-0.2) K/uL Immature Gran # (Auto) 0.02 (0.00-0.02) K/uL Sodium 139 (136-145) mmol/L Potassium 4.2 (3.5-5.1) mmol/L Chloride 109 H (98-107) mmol/L Carbon Dioxide 27 (21-32) mmol/L Anion Gap 3.0 (3-11) BUN 23 H (7-18) mg/dl Creatinine 0.97 (0.6-1.2) mg/dl Est Cr Clr Drug Dosing 44.4 ml/min Est GFR ( Amer) 64.8 Est GFR (Non-Af Amer) 55.9 BUN/Creatinine Ratio 23.7 H (10-20) Glucose 175 H (70-99) mg/dl Estimat Average Glucose 105 mg/dl Hemoglobin A1c 5.3 (4.5-5.6) % Calcium 8.1 L (8.5-10.1) mg/dl Medications Administered Current Inpatient Medications Acetaminophen (Acetaminophen 500 Mg Tab) 1,000 mg PO Q8H PRN PRN Reason: MILD Pain Scale 1,2,3 & Pre PT Stop: 06/13/20 17:05 Al Hydrox/Mg Hydrox/Simethicone (Aluminum/Magnesium Susp 30 Ml Udc) 30 ml PO Q6H PRN PRN Reason: Dyspepsia Stop: 06/13/20 17:05 Aspirin (Aspirin 81 Mg Ectab) 81 mg PO HS [facility] Stop: 06/13/20 20:59 Last Admin: 05/14/20 20:03 Dose: 81 mg Documented by: Bisacodyl (Bisacodyl 10 Mg Supp) 10 mg [place] DAILY PRN PRN Reason: Constipation Stop: 06/13/20 17:05 Diphenhydramine HCl (Diphenhydramine Capsule 25 Mg Cap) 25 mg PO Q6H PRN PRN Reason: Allergic Rhinitis/Insomnia Stop: 06/13/20 17:05 Enalapril Maleate (Enalapril Maleate 10 Mg Tab) 20 mg PO BID [facility] Stop: 06/13/20 20:59 Last Admin: 05/15/20 08:50 Dose: 20 mg Documented by: Famotidine (Famotidine 20 Mg Tab) 20 mg PO Q12H PRN PRN Reason: Dyspepsia Stop: 06/13/20 17:05 Hydromorphone HCl (Hydromorphone Inj 0.5 Mg/0.5 Ml Syr) 0.5 mg IV Q3H PRN PRN Reason: MOD pain (scale 4-6) & Pre PT Stop: 05/28/20 17:05 Hydromorphone HCl (Hydromorphone Inj 1 Mg/Ml Syringe) 1 mg IV Q3H PRN PRN Reason: severe pain (scale 7-10) Stop: 05/28/20 17:05 Hydroxyzine HCl (Hydroxyzine Hcl 25 Mg Tab) 25 mg PO Q8H PRN PRN Reason: Anxiety Stop: 06/13/20 17:05 Lorazepam (Ativan) 0.5 mg in 1 mls @ 0.5 mls/min IV Q8H PRN PRN Reason: Sedation/Anxiety Stop: 06/13/20 17:05 Acetaminophen (Ofirmev) 1,000 mg in 100 mls @ 400 mls/hr IV Q8H PRN PRN Reason: MILD Pain Rating 1,2,3 Stop: 05/15/20 17:05 Promethazine HCl 12.5 mg/ (Sodium Chloride) 50.5 mls @ 204 mls/hr IV Q6H PRN PRN Reason: Nausea &/or Vomiting Stop: 06/13/20 17:05 Dexamethasone Sodium Phosphate (6 mg/ Syringe) 1.5 mls @ 1 mls/min IV DAILY [facility] Stop: 06/15/20 08:59 Influenza Virus Vaccine Quadrival (Do Not Administer Flu Vaccine) 1 ea N/A PRN PRN PRN Reason: Notification Stop: 06/13/20 17:05 Lorazepam (Lorazepam 0.5 Mg Tab) 0.5 mg PO Q8H PRN PRN Reason: Sedation/Anxiety Stop: 06/13/20 17:05 Magnesium Hydroxide (Magnesium Hydroxide Susp 30 Ml Udc) 30 ml PO DAILY PRN PRN Reason: Constipation Stop: 06/13/20 17:05 Magnesium Oxide (Magnesium Oxide 400 Mg Tab) 400 mg PO QAM [facility] Stop: 06/14/20 08:59 Last Admin: 05/15/20 08:50 Dose: 400 mg Documented by: Metoclopramide HCl (Metoclopramide Hcl Inj 5 Mg/Ml 2 Ml Vial) 10 mg IV Q6H PRN PRN Reason: Nausea &/or Vomiting Stop: 06/13/20 17:05 Multivitamins/Minerals (Calcium 600mg + Vit D 400 Iu Tab) [facility] [place]: 06/14/20 08:59 Last Admin: 05/15/20 08:50 Dose: 2 tab Documented by: Naloxone HCl (Naloxone Hcl 0.4 Mg/1 Ml Vial/Carp) 0.1 mg IV Q5M PRN; Protocol PRN Reason: Oversedation/Resp Depression Stop: 06/13/20 17:05 Ondansetron HCl (Ondansetron Inj 2 Mg/Ml 2 Ml Vial) 4 mg IV Q6H PRN PRN Reason: Nausea &/or Vomiting Stop: 06/13/20 17:05 Ondansetron HCl (Ondansetron 4 Mg Od Tab) 4 mg PO Q6H PRN PRN Reason: Nausea Stop: 06/13/20 17:05 Oxycodone HCl (Oxycodone Hcl Ir 5 Mg Tab (Immediate Release)) 5 - 10 mg PO Q4H PRN PRN Reason: Moderate-Severe Pain & Pre PT Stop: 05/28/20 17:05 Pneumococcal Polyvalent Vaccine (Do Not Administer Pneumococcal Vaccine) 1 ea N/A PRN PRN PRN Reason: Notification Stop: 06/13/20 17:05 Polyethylene Glycol (Polyethylene (Miralax) 17 Gm Pack) 17 gm PO Q6 [facility] Stop: 06/14/20 05:59 Last Admin: 05/15/20 13:10 Dose: 17 gm Documented by: Senna/Docusate Sodium (Docusate Sodium/Senna 50/8.6mg Tab) 2 tab PO HS [facility] Stop: 06/13/20 20:59 Last Admin: 05/14/20 20:03 Dose: 2 tab Documented by: Simvastatin (Simvastatin 20 Mg Tab) 20 mg PO [facility] Stop: 06/13/20 20:59 Last Admin: 05/14/20 20:03 Dose: 20 mg Documented by: Sodium Biphosphate/Sodium Phosphate (Sod Phosphate/Sod Biphosphate Enema 132 Ml Btl) 132 ml [place] ONE PRN PRN Reason: Constipation Stop: 06/13/20 17:05 Tramadol HCl (Tramadol Hcl 50 Mg Tablet) 50 - 100 mg PO Q4H PRN PRN Reason: Moderate-Severe Pain & Pre PT Stop: 06/13/20 17:05
[2020-05-15] MEDS: DOCUSATE SODIUM/SENNA 50/8.6MG TAB PO SCH (21:02)
[2020-05-15] MEDS: ASPIRIN 81 MG ECTAB PO SCH (21:02)
[2020-05-15] MEDS: SIMVASTATIN 20 MG TAB PO SCH (21:02)
[2020-05-16] MEDS: POLYETHYLENE (MIRALAX) 17 GM PACK PO SCH ×3 (00:02→11:58)
[2020-05-16 06:13] LABS: Hematocrit (blood only) 29.6 % (37-47); Hemoglobin 9.8 g/dL (12.0-16.0); Mean Corpuscular Hemoglobin 31.4 pg (25-34); Mean Corpuscular Hgb Conc 33.1 g/dL (32-36); Mean Corpuscular Volume 94.9 fL (80-100); Mean Platelet Volume 10.5 fL (7.4-10.4); Platelet Count 161 K/uL (130-400); RDW Coefficient of Variation 13.3 % (11.5-14.5); RDW Standard Deviation 45.7 fL (36.4-46.3); Red Blood Count 3.12 M/uL (4.2-5.4); White Blood Count 12.36 K/uL (4.8-10.8)
[2020-05-16 06:42] LABS: BUN Creatinine Ratio 37.3 (10-20); Calcium 8.4 mg/dl (8.5-10.1); Creatinine Clr Calc Pharmacy 55.3 ml/min; Est GFR (African American) 84.4; Est GFR (Non-African American) 72.8; Potassium 4.5 mmol/L (3.5-5.1)
[2020-05-16] MEDS: DEXAMETHASONE SOD PHOSPHATE 6 MG in SYRINGE 0 ML IV SCH (08:50)
[2020-05-16] MEDS: MAGNESIUM OXIDE 400 MG TAB PO SCH (08:50)
[2020-05-16] MEDS: CALCIUM 600MG + VIT D 400 IU TAB PO SCH (08:51)
--- NOTE | 2020-05-16 09:21 | Orthopedic Progress Note ---
Date of Service May 16, 2020 Assessment & Plan (1) Neurogenic claudication due to lumbar spinal stenosis: She's doing well POD#2. Conitnue with physical therapy. Continue with pain control. Maintain VIVIANA drain. DVT prophylaxis is Teds/SCDs. Anticipate discharge home tomorrow Admission and Anticipated Discharge Date Admission Date: May 14, 2020 Supervising Physician Co-Signing Physician Notes Dr. Byron Aguirre Subjective Pt is POD#2 multilevel lumbar decompression/fusion. She's doing quite well. Denies radicular leg pain. Back pain is controlled. +BM. VIVIANA output 80cc last shift. She's making progress in physical therapy. Review of Systems Review of Systems: All systems reviewed & are unremarkable except as noted in HPI & below Physical Exam Physical Exam: She's sitting in chair in NAD. Aand Ox3 calves soft and nontender b/l strength 5/5 b/l neurovascularly intact b/l Constitutional: WD/WN, vitals as above Eyes: normal visual li by confrontation ENMT: external ear and nose normal, oropharynx normal Neck: normal visual inspection Respiratory: normal respiratory effort Cardiovascular: Extremities: normal capillary refill Chest (Breasts): Chest: normal inspection of chest Gastrointestinal (Abdomen): normal bowel sounds, soft, nontender, no hepatosplenomegaly Musculoskeletal: no cyanosis or clubbing, extremities motor strength 5/5 Skin: no rashes, warm and dry Neurologic: patellar DTR's 2+ bilat, sensation intact normal touch/pain/proprioception and moves all extremities Psychiatric: A+Ox3, euthymic affect Results & Data ([facility]) Vital Signs (Past 12 Hours) Vital Signs Temp Pulse Resp BP Pulse Ox 05/16/20 06:26 36.8 C 112 H 16 93/58 L 98 05/16/20 01:22 37.2 C 05/15/20 23:52 37.7 C H 83 20 116/64 93
[2020-05-16] MEDS ORDERED: SODIUM CHLORIDE 0.9% 1000ML 250 ML IV ONE (10:34)
--- NOTE | 2020-05-16 10:36 | Hospitalist Progress Note ---
Date of Service May 16, 2020 Assessment & Plan (1) Neurogenic claudication due to lumbar spinal stenosis: Status post L3-S1 decompression fusion by Dr. Aguirre POD #2 Tolerated procedure well Pain/wound management per Ortho Activity and therapy as directed by Ortho Encourage incentive spirometry Acute blood loss anemia/ post-op anemia blood loss expected post op, no need for transfusion at this time Hgb down to 10, pre-op 13.7 monitor H&H (2) Hypertension: BP 122/68 Continued to hold enalapril for now Plan to restart on dc (3) Hyperlipidemia: Continue statin (4) Elevated serum glucose: preop glucose 164 screened for DM, current HbA1c 5.3% Follow up as outpt (5) Stroke: hx of remote cva, found on imaging No residual deficit Continue ASA and statin (6) DVT prophylaxis: SCD/TEDS, ASA Disposition: per primary team, likely dc home tomorrow Follow up: Dr. Uribe, [place], [place], upon discharge Thank you for this consultation. We will follow the patient with you during their hospital stay. You can [facility] via pager @ [phone]. Admission and Anticipated Discharge Date Admission Date: May 14, 2020 Subjective Pt being in seen in consultation for med. management after orthopedic surgery. Pt is laying in bed in NAD. Pt is comfortable, no dizziness or lightheadedness. Hgb down to 9.8. Crum catheter removed. Denies any back pain. Able to ambulate without difficulty. Voiding without difficulty, having bowel movements. Review of Systems Review of Systems: All systems reviewed & are unremarkable except as noted in HPI & below Constitutional: no fever and no chills Respiratory: no cough and no dyspnea Cardiovascular: no chest pain and no palpitations Gastrointestinal: no abdominal pain, no nausea and no vomiting Physical Exam Physical Exam: Constitutional: WD/WN, elderly, female, answers questions appropriately, vitals as above, NAD, sitting up in bed, pleasant, conversing easily Head: Normocephalic, Atraumatic Eyes: PERRL, EOMI, conjunctivae normal, anicteric sclerae ENMT: external ear and nose normal, oropharynx normal Neck: trachea midline, no thyromegaly normal visual inspection Respiratory: normal respiratory effort, lungs clear to auscultation, no wheeze, rales, rhonchi. Normal insp/exp effort, no accessory muscle use Cardiovascular: RRR, 1/6 ROBERTA noted cardiac apex, no edema, bilateral SCDs and teds in place, vessels: no JVD or carotid bruit Chest: normal inspection of chest Abdomen: normal bowel sounds, soft, nontender, nondistended Musculoskeletal: no cyanosis or clubbing, active range of motion to extremities x4, VIVIANA drain with serosanguineous drainage : Crum catheter removed Skin: no rashes, warm and dry normal turgor Neurologic: PERRL, EOMI, no face palsy, no dysarthria CN's II-XI intact bilaterally and moves all extremities Psychiatric: A+Ox3, drowsy, euthymic affect Results & Data Results & Data ([facility]) Vital Signs (Past 12 Hours) Vital Signs Temp Pulse Resp BP Pulse Ox 05/16/20 06:26 36.8 C 112 H 16 93/58 L 98 05/16/20 01:22 37.2 C 05/15/20 23:52 37.7 C H 83 20 116/64 93 Laboratory Results 05/16/20 05/16/20 Range/Units 05:34 05:34 WBC 12.36 H (4.8-10.8) K/uL RBC 3.12 L (4.2-5.4) M/uL Hgb 9.8 L (12.0-16.0) g/dL Hct 29.6 L (37-47) % MCV 94.9 (80-100) fL MCH 31.4 (25-34) pg MCHC 33.1 (32-36) g/dL RDW Std Deviation 45.7 (36.4-46.3) fL RDW Coeff of Pam 13.3 (11.5-14.5) % Plt Count 161 (130-400) K/uL MPV 10.5 H (7.4-10.4) fL Sodium 141 (136-145) mmol/L Potassium 4.5 (3.5-5.1) mmol/L Chloride 111 H (98-107) mmol/L Carbon Dioxide 28 (21-32) mmol/L Anion Gap 2.0 L (3-11) BUN 29 H (7-18) mg/dl Creatinine 0.78 (0.6-1.2) mg/dl Est Cr Clr Drug Dosing 55.3 ml/min Est GFR ( Amer) 84.4 Est GFR (Non-Af Amer) 72.8 BUN/Creatinine Ratio 37.3 H (10-20) Glucose 105 H (70-99) mg/dl Calcium 8.4 L (8.5-10.1) mg/dl Medications Administered Current Inpatient Medications Acetaminophen (Acetaminophen 500 Mg Tab) 1,000 mg PO Q8H PRN PRN Reason: MILD Pain Scale 1,2,3 & Pre PT Stop: 06/13/20 17:05 Last Admin: 05/16/20 00:06 Dose: 1,000 mg Documented by: Al Hydrox/Mg Hydrox/Simethicone (Aluminum/Magnesium Susp 30 Ml Udc) 30 ml PO Q6H PRN PRN Reason: Dyspepsia Stop: 06/13/20 17:05 Aspirin (Aspirin 81 Mg Ectab) 81 mg PO HS [facility] Stop: 06/13/20 20:59 Last Admin: 05/15/20 21:02 Dose: 81 mg Documented by: Bisacodyl (Bisacodyl 10 Mg Supp) [address] DAILY PRN PRN Reason: Constipation Stop: 06/13/20 17:05 Diphenhydramine HCl (Diphenhydramine Capsule 25 Mg Cap) 25 mg PO Q6H PRN PRN Reason: Allergic Rhinitis/Insomnia Stop: 06/13/20 17:05 Enalapril Maleate (Enalapril Maleate 10 Mg Tab) 20 mg PO BID [facility] Stop: 06/13/20 20:59 Last Admin: 05/15/20 08:50 Dose: 20 mg Documented by: Famotidine (Famotidine 20 Mg Tab) 20 mg PO Q12H PRN PRN Reason: Dyspepsia Stop: 06/13/20 17:05 Hydromorphone HCl (Hydromorphone Inj 0.5 Mg/0.5 Ml Syr) 0.5 mg IV Q3H PRN PRN Reason: MOD pain (scale 4-6) & Pre PT Stop: 05/28/20 17:05 Hydromorphone HCl (Hydromorphone Inj 1 Mg/Ml Syringe) 1 mg IV Q3H PRN PRN Reason: severe pain (scale 7-10) Stop: 05/28/20 17:05 Hydroxyzine HCl (Hydroxyzine Hcl 25 Mg Tab) 25 mg PO Q8H PRN PRN Reason: Anxiety Stop: 06/13/20 17:05 Lorazepam (Ativan) 0.5 mg in 1 mls @ 0.5 mls/min IV Q8H PRN PRN Reason: Sedation/Anxiety Stop: 06/13/20 17:05 Promethazine HCl 12.5 mg/ (Sodium Chloride) 50.5 mls @ 204 mls/hr IV Q6H PRN PRN Reason: Nausea &/or Vomiting Stop: 06/13/20 17:05 Dexamethasone Sodium Phosphate (6 mg/ Syringe) 1.5 mls @ 1 mls/min IV DAILY [facility] Stop: 06/15/20 08:59 Last Admin: 05/16/20 08:50 Dose: 1 mls/min Documented by: Sodium Chloride (Nss 1000ml) 250 mls @ 999 mls/hr IV .Q16M ONE Stop: 05/16/20 10:49 Influenza Virus Vaccine Quadrival (Do Not Administer Flu Vaccine) 1 ea N/A PRN PRN PRN Reason: Notification Stop: 06/13/20 17:05 Lorazepam (Lorazepam 0.5 Mg Tab) 0.5 mg PO Q8H PRN PRN Reason: Sedation/Anxiety Stop: 06/13/20 17:05 Magnesium Hydroxide (Magnesium Hydroxide Susp 30 Ml Udc) 30 ml PO DAILY PRN PRN Reason: Constipation Stop: 06/13/20 17:05 Magnesium Oxide (Magnesium Oxide 400 Mg Tab) 400 mg PO QAM [facility] Stop: 06/14/20 08:59 Last Admin: 05/16/20 08:50 Dose: 400 mg Documented by: Metoclopramide HCl (Metoclopramide Hcl Inj 5 Mg/Ml 2 Ml Vial) 10 mg IV Q6H PRN PRN Reason: Nausea &/or Vomiting Stop: 06/13/20 17:05 Multivitamins/Minerals (Calcium 600mg + Vit D 400 Iu Tab) 2 tab PO QAM [facility] Stop: 06/14/20 08:59 Last Admin: 05/16/20 08:51 Dose: 2 tab Documented by: Naloxone HCl (Naloxone Hcl 0.4 Mg/1 Ml Vial/Carp) 0.1 mg IV Q5M PRN; Protocol PRN Reason: Oversedation/Resp Depression Stop: 06/13/20 17:05 Ondansetron HCl (Ondansetron Inj 2 Mg/Ml 2 Ml Vial) 4 mg IV Q6H PRN PRN Reason: Nausea &/or Vomiting Stop: 06/13/20 17:05 Ondansetron HCl (Ondansetron 4 Mg Od Tab) 4 mg PO Q6H PRN PRN Reason: Nausea Stop: 06/13/20 17:05 Oxycodone HCl (Oxycodone Hcl Ir 5 Mg Tab (Immediate Release)) 5 - 10 mg PO Q4H PRN PRN Reason: Moderate-Severe Pain & Pre PT Stop: 05/28/20 17:05 Pneumococcal Polyvalent Vaccine (Do Not Administer Pneumococcal Vaccine) 1 ea N/A PRN PRN PRN Reason: Notification Stop: 06/13/20 17:05 Polyethylene Glycol (Polyethylene (Miralax) 17 Gm Pack) 17 gm PO Q6 [facility] Stop: 06/14/20 05:59 Last Admin: 05/16/20 04:50 Dose: Not Given Documented by: Senna/Docusate Sodium (Docusate Sodium/Senna 50/8.6mg Tab) 2 tab PO HS [facility] Stop: 06/13/20 20:59 Last Admin: 05/15/20 21:02 Dose: Not Given Documented by: Simvastatin (Simvastatin 20 Mg Tab) 20 mg PO HS [facility] Stop: 06/13/20 20:59 Last Admin: 05/15/20 21:02 Dose: 20 mg Documented by: Sodium Biphosphate/Sodium Phosphate (Sod Phosphate/Sod Biphosphate Enema 132 Ml Btl) [address] ONE PRN PRN Reason: Constipation Stop: 06/13/20 17:05 Tramadol HCl (Tramadol Hcl 50 Mg Tablet) 50 - 100 mg PO Q4H PRN PRN Reason: Moderate-Severe Pain & Pre PT Stop: 06/13/20 17:05
[2020-05-16] MEDS: DOCUSATE SODIUM/SENNA 50/8.6MG TAB PO SCH (20:01)
[2020-05-16] MEDS: ASPIRIN 81 MG ECTAB PO SCH (20:02)
[2020-05-16] MEDS: SIMVASTATIN 20 MG TAB PO SCH (20:02)
[2020-05-16] MEDS: ENALAPRIL MALEATE 10 MG TAB PO SCH (20:16)
[2020-05-17 06:54] LABS: Hematocrit (blood only) 28.4 % (37-47); Hemoglobin 9.5 g/dL (12.0-16.0); Mean Corpuscular Hemoglobin 31.6 pg (25-34); Mean Corpuscular Hgb Conc 33.5 g/dL (32-36); Mean Corpuscular Volume 94.4 fL (80-100); Mean Platelet Volume 10.6 fL (7.4-10.4); Platelet Count 163 K/uL (130-400); RDW Coefficient of Variation 13.3 % (11.5-14.5); RDW Standard Deviation 45.6 fL (36.4-46.3); Red Blood Count 3.01 M/uL (4.2-5.4); White Blood Count 15.06 K/uL (4.8-10.8)
[2020-05-17 07:36] LABS: BUN Creatinine Ratio 35.2 (10-20); Calcium 8.1 mg/dl (8.5-10.1); Creatinine Clr Calc Pharmacy 59.1 ml/min; Est GFR (African American) 91.4; Est GFR (Non-African American) 78.9; Potassium 3.7 mmol/L (3.5-5.1)
--- NOTE | 2020-05-17 07:54 | Hospitalist Progress Note ---
Date of Service May 17, 2020 Assessment & Plan (1) Neurogenic claudication due to lumbar spinal stenosis: Status post L3-S1 decompression fusion by Dr. Aguirre POD #3 Tolerated procedure well Pain/wound management per Ortho Activity and therapy as directed by Ortho Encourage incentive spirometry Acute blood loss anemia/ post-op anemia blood loss expected post op, no need for transfusion at this time Hgb down to 9-10, pre-op 13.7 monitor H&H (2) Hypertension: BP 122/81 held enalapril on and off for mild hypotension Plan to restart on dc Pt aware to follow up with PCP, arrangements already made by the pt (3) Hyperlipidemia: Continue statin (4) Elevated serum glucose: preop glucose 164 screened for DM, current HbA1c 5.3% Follow up as outpt (5) Stroke: hx of remote cva, found on imaging No residual deficit Continue ASA and statin (6) DVT prophylaxis: SCD/TEDS, ASA Disposition: per primary team, likely dc home today Follow up: Dr. Uribe, [place], [place], upon discharge Thank you for this consultation. We will follow the patient with you during their hospital stay. You can [facility] a [facility] via pager @ [phone]. Admission and Anticipated Discharge Date Admission Date: May 14, 2020 Subjective Pt being in seen in consultation for med. management after orthopedic surgery, patricio. hypertension and monitoring for blood loss anemia. Pt is up and ambulating, in NAD. Pt is comfortable, no dizziness or lightheadedness. Hgb stable. Denies any back pain. Able to ambulate without difficulty. Voiding without difficulty, having bowel movements. Review of Systems Review of Systems: All systems reviewed & are unremarkable except as noted in HPI & below Constitutional: no fever and no chills Respiratory: no cough and no dyspnea Cardiovascular: no chest pain and no palpitations Gastrointestinal: no abdominal pain, no nausea and no vomiting Physical Exam Physical Exam: Constitutional: WD/WN, elderly, female, answers questions appropriately, vitals as above, NAD, sitting up in bed, pleasant, conversing easily Head: Normocephalic, Atraumatic Eyes: PERRL, EOMI, conjunctivae normal, anicteric sclerae ENMT: external ear and nose normal, oropharynx normal Neck: trachea midline, no thyromegaly normal visual inspection Respiratory: normal respiratory effort, lungs clear to auscultation, no wheeze, rales, rhonchi. Normal insp/exp effort, no accessory muscle use Cardiovascular: RRR, 1/6 ROBERTA noted cardiac apex, no edema, bilateral SCDs and teds in place, vessels: no JVD or carotid bruit Chest: normal inspection of chest Abdomen: normal bowel sounds, soft, nontender, nondistended Musculoskeletal: no cyanosis or clubbing, active range of motion to extremities, ambulates w/o difficulty w/ a walker Skin: no rashes, warm and dry normal turgor Neurologic: PERRL, EOMI, no face palsy, no dysarthria CN's II-XI intact bilaterally and moves all extremities Psychiatric: A+Ox3, drowsy, euthymic affect Results & Data Results & Data ([facility]) Vital Signs (Past 12 Hours) Vital Signs Temp Pulse Resp BP BP Pulse Ox 05/17/20 07:25 36.6 C 78 16 122/81 96 05/17/20 00:07 37.1 C 78 14 131/62 96 Laboratory Results 05/17/20 05/17/20 Range/Units 06:34 06:34 WBC 15.06 H (4.8-10.8) K/uL RBC 3.01 L (4.2-5.4) M/uL Hgb 9.5 L (12.0-16.0) g/dL Hct 28.4 L (37-47) % MCV 94.4 (80-100) fL MCH 31.6 (25-34) pg MCHC 33.5 (32-36) g/dL RDW Std Deviation 45.6 (36.4-46.3) fL RDW Coeff of Pam 13.3 (11.5-14.5) % Plt Count 163 (130-400) K/uL MPV 10.6 H (7.4-10.4) fL Sodium 142 (136-145) mmol/L Potassium 3.7 D (3.5-5.1) mmol/L Chloride 110 H (98-107) mmol/L Carbon Dioxide 30 (21-32) mmol/L Anion Gap 2.0 L (3-11) BUN 26 H (7-18) mg/dl Creatinine 0.73 (0.6-1.2) mg/dl Est Cr Clr Drug Dosing 59.1 ml/min Est GFR ( Amer) 91.4 Est GFR (Non-Af Amer) 78.9 BUN/Creatinine Ratio 35.2 H (10-20) Glucose 89 (70-99) mg/dl Calcium 8.1 L (8.5-10.1) mg/dl Medications Administered Current Inpatient Medications Acetaminophen (Acetaminophen 500 Mg Tab) 1,000 mg PO Q8H PRN PRN Reason: MILD Pain Scale 1,2,3 & Pre PT Stop: 06/13/20 17:05 Last Admin: 05/16/20 00:06 Dose: 1,000 mg Documented by: Al Hydrox/Mg Hydrox/Simethicone (Aluminum/Magnesium Susp 30 Ml Udc) 30 ml PO Q6H PRN PRN Reason: Dyspepsia Stop: 06/13/20 17:05 Aspirin (Aspirin 81 Mg Ectab) 81 mg PO HS COUNTS INCLUDE 234 BEDS AT THE [facility] Stop: 06/13/20 20:59 Last Admin: 05/16/20 20:02 Dose: 81 mg Documented by: Bisacodyl (Bisacodyl 10 Mg Supp) 10 mg MD DAILY PRN PRN Reason: Constipation Stop: 06/13/20 17:05 Diphenhydramine HCl (Diphenhydramine Capsule 25 Mg Cap) 25 mg PO Q6H PRN PRN Reason: Allergic Rhinitis/Insomnia Stop: 06/13/20 17:05 Enalapril Maleate (Enalapril Maleate 10 Mg Tab) 20 mg PO BID COUNTS INCLUDE 234 BEDS AT THE [facility] Stop: 06/13/20 20:59 Last Admin: 05/16/20 20:16 Dose: 20 mg Documented by: Famotidine (Famotidine 20 Mg Tab) 20 mg PO Q12H PRN PRN Reason: Dyspepsia Stop: 06/13/20 17:05 Hydromorphone HCl (Hydromorphone Inj 0.5 Mg/0.5 Ml Syr) 0.5 mg IV Q3H PRN PRN Reason: MOD pain (scale 4-6) & Pre PT Stop: 05/28/20 17:05 Hydromorphone HCl (Hydromorphone Inj 1 Mg/Ml Syringe) 1 mg IV Q3H PRN PRN Reason: severe pain (scale 7-10) Stop: 05/28/20 17:05 Hydroxyzine HCl (Hydroxyzine Hcl 25 Mg Tab) 25 mg PO Q8H PRN PRN Reason: Anxiety Stop: 06/13/20 17:05 Lorazepam (Ativan) 0.5 mg in 1 mls @ 0.5 mls/min IV Q8H PRN PRN Reason: Sedation/Anxiety Stop: 06/13/20 17:05 Promethazine HCl 12.5 mg/ (Sodium Chloride) 50.5 mls @ 204 mls/hr IV Q6H PRN PRN Reason: Nausea &/or Vomiting Stop: 06/13/20 17:05 Dexamethasone Sodium Phosphate (6 mg/ Syringe) 1.5 mls @ 1 mls/min IV DAILY JOVITA Stop: 06/15/20 08:59 Last Admin: 05/16/20 08:50 Dose: 1 mls/min Documented by: Influenza Virus Vaccine Quadrival (Do Not Administer Flu Vaccine) 1 ea N/A PRN PRN PRN Reason: Notification Stop: 06/13/20 17:05 Lorazepam (Lorazepam 0.5 Mg Tab) 0.5 mg PO Q8H PRN PRN Reason: Sedation/Anxiety Stop: 06/13/20 17:05 Magnesium Hydroxide (Magnesium Hydroxide Susp 30 Ml Udc) 30 ml PO DAILY PRN PRN Reason: Constipation Stop: 06/13/20 17:05 Magnesium Oxide (Magnesium Oxide 400 Mg Tab) 400 mg PO QAM COUNTS INCLUDE 234 BEDS AT THE [facility] Stop: 06/14/20 08:59 Last Admin: 05/16/20 08:50 Dose: 400 mg Documented by: Metoclopramide HCl (Metoclopramide Hcl Inj 5 Mg/Ml 2 Ml Vial) 10 mg IV Q6H PRN PRN Reason: Nausea &/or Vomiting Stop: 06/13/20 17:05 Multivitamins/Minerals (Calcium 600mg + Vit D 400 Iu Tab) 2 tab PO QAM COUNTS INCLUDE 234 BEDS AT THE [facility] Stop: 06/14/20 08:59 Last Admin: 05/16/20 08:51 Dose: 2 tab Documented by: Naloxone HCl (Naloxone Hcl 0.4 Mg/1 Ml Vial/Carp) 0.1 mg IV Q5M PRN; Protocol PRN Reason: Oversedation/Resp Depression Stop: 06/13/20 17:05 Ondansetron HCl (Ondansetron Inj 2 Mg/Ml 2 Ml Vial) 4 mg IV Q6H PRN PRN Reason: Nausea &/or Vomiting Stop: 06/13/20 17:05 Ondansetron HCl (Ondansetron 4 Mg Od Tab) 4 mg PO Q6H PRN PRN Reason: Nausea Stop: 06/13/20 17:05 Oxycodone HCl (Oxycodone Hcl Ir 5 Mg Tab (Immediate Release)) 5 - 10 mg PO Q4H PRN PRN Reason: Moderate-Severe Pain & Pre PT Stop: 05/28/20 17:05 Pneumococcal Polyvalent Vaccine (Do Not Administer Pneumococcal Vaccine) 1 ea N/A PRN PRN PRN Reason: Notification Stop: 06/13/20 17:05 Senna/Docusate Sodium (Docusate Sodium/Senna 50/8.6mg Tab) 2 tab PO HS COUNTS INCLUDE 234 BEDS AT THE [facility] Stop: 06/13/20 20:59 Last Admin: 05/16/20 20:01 Dose: Not Given Documented by: Simvastatin (Simvastatin 20 Mg Tab) 20 mg PO HS JOVITA Stop: 06/13/20 20:59 Last Admin: 05/16/20 20:02 Dose: 20 mg Documented by: Sodium Biphosphate/Sodium Phosphate (Sod Phosphate/Sod Biphosphate Enema 132 Ml Btl) 132 ml MD ONE PRN PRN Reason: Constipation Stop: 06/13/20 17:05 Tramadol HCl (Tramadol Hcl 50 Mg Tablet) 50 - 100 mg PO Q4H PRN PRN Reason: Moderate-Severe Pain & Pre PT Stop: 06/13/20 17:05
--- NOTE | 2020-05-17 08:00 | Anesthesiology Progress Note ---
Date of Service May 17, 2020 Anesthesia Post Procedure Vital Signs Vital Signs: Temp Pulse Pulse Resp BP BP Pulse Ox 05/17/20 07:25 36.6 C 78 16 122/81 96 05/17/20 00:07 37.1 C 78 14 131/62 96 05/16/20 16:30 154/68 H 05/16/20 16:17 37.1 C 85 18 158/73 H 95 05/16/20 12:26 85 16 122/68 96 Pain Intensity Lower Back: Pain Intensity: 0 Notes Mental Status: alert / awake / arousable and participated in evaluation Patient Amnestic to Procedure: Yes Nausea / Vomiting: adequately controlled Pain: adequately controlled Airway Patency, RR, SpO2: stable & adequate BP & HR: stable & adequate Hydration State: stable & adequate Anesthetic Complications: no major complications apparent
--- NOTE | 2020-05-17 09:17 | Discharge Summary ---
Date of Service May 17, 2020 Admission HPI Per Admitting Provider This is a 72-year-old female who presents with chronic persistent back and leg pain. Failing course of nonoperative care she is here for the above-mentioned procedure. Principal Diagnosis Lumbar spinal stenosis with neurogenic claudication Discharge Data Allergies Allergy/AdvReac Type Severity Reaction Status Date / Time No Known Allergies Allergy Verified 04/16/20 14:00 Consultations 05/14/20 17:06 Consult Case Management - Discharge Planning Routine Consult Hospitalist Routine Procedures Performed Operation Date: 05/14/20 10:55 Actual Procedures p L3-S1 Decompression and Fusion, Interbody cage at L4-L5, Spinal Cord Monitoring, Application of Bone Infuse and Allograft(Not Applicable) - Byron Aguirre DO Ordered Studies 05/14/20 12:15 FL fluoroscopy <1hr Routine FL lumbar spine 2-3V Routine Hospital Course (1) Neurogenic claudication due to lumbar spinal stenosis: Patient went lumbar compression vision tolerates well second orthopedic for postop labor postop day 1 she was up and ambulating progressed to postop day #2 postop day #3 excellent strength testing VIVIANA drain decreased appropriately. Pain well controlled. Subsequently discharged home. Discharge orders and instructions from the chart for further review. Total Time Total Time Spent Total Time Spent (In Minutes): 20 minutes Discharge Plan Discharge Items Patient Disposition: Home - Self-Care Reason For Visit: Spondylolisthesis, Lumbar Region Discharge Diagnosis: Lumbar spinal stenosis with spondylolisthesis Activity: As commented below Non-emergency contact: Primary Care Provider Call non-emergency contact if: you have any medication questions Follow-up/Referrals: Erica Uribe M.D. [Primary Care Provider] - Diet: Regular Addtl Attending Provider Instructions: ACTIVITY RECOMMENDATIONS: SELF CARE INSTRUCTIONS AFTER THORACIC/LUMBAR FUSIONS 1. You may walk to your tolerance. It is good exercise for your legs and back. Expect some back and intermittent leg aches and pains. 2. You may perform "counter-top" level activities (make a sandwich, nighat with a project, etc.). 3. No bending or lifting of more than 10 pounds or back twisting of any nature (roll like a log when turning in bed). 4. You may ride in a car for 20-30 minutes at a time. No driving until after your first visit with your doctor. 5. Frequent changes of position and restricting sitting to 30 minutes at a time will help limit the amount of back spasms and stiffness you may experience. 6. You may discontinue the use of ambulatory aids (cane, crutches, etc.) once your strength and confidence allow. 7. You may modeling agency manager the shower and let water strike your incision when you arrive home at least once daily. Do not take a tub bath, sit in a hot tub or go into a swimming pool until after your first recheck in the office. SPECIAL CARE INSTRUCTIONS: VERY IMPORTANT TO READ AND REVIEW A. Your surgical incision has been closed with a cosmetic suture under the skin that will dissolve in about 6 weeks. In 14 days, you can use a pair of clean scissors and cut the suture that is left outside of the skin at the ends of your incision. 1. The small skin tapes can be removed 7 days after surgery if they have not fallen off by that point. 2. You may keep the wound open to air as much as possible to promote healing after post-op day number 5 unless told otherwise by your doctor. 3. If you think the wound looks like it is becoming infected (redness or worsening drainage) and/or you are experiencing fever, chill or worsening back pain and muscle spasms, contact the office so that we may evaluate you as soon as possible. B. Complications are uncommon, but please contact us if you have any signs or symptoms of: 1. wound infection (fever higher than 102.5 degrees F, redness, separation of wound, drainage, or increasing pain from the incision) 2. blood clots in legs (pain, swelling, redness and warmth in legs) 3. urinary tract infection (fever higher than 102.5 degrees F, burning upon urination or increased frequency of urination) 4. nerve problems (inability to walk on your toes or heels, numbness, loss of bowel or bladder control) 5. any other symptoms that concern you C. Please call the office at if you have any concerns or questions about your operation or recovery. D. No smoking! Smoking drastically decreases the chance of a solid fusion. E. Do not take any anti-inflammatory medications (Indocin, Advil, Motrin, Aspirin, Naprosyn, etc.) as these may inhibit the chance of a solid fusion. Tylenol is okay to take for pain. MANAGING PAIN AFTER SPINAL SURGERY 1. Narcotic medication is intended for short-term use and will be provided for surgical pain. Surgical pain usually lasts for a period of 4-6 weeks. Narcotic medication includes Percocet, Vicodin, Darvocet, Tylenol #3 or Lortab. 2. Longer-term pain is more appropriately treated with non-narcotic medication such as Tylenol ES. 3. Muscle spasm is not appropriately treated with narcotics. Muscle relaxers such as Soma, Flexeril or Skelaxin can be used along with Tylenol ES. 4. Remember that we all live with some "aches and pains". This is not unusual or uncommon after an injury or as we get older. a. Back pain is expected and may include muscle spasms for 4 to 6 weeks after surgery. The pain should gradually improve. If the pain worsens for no apparent reason, please contact the office. b. Intermittent leg pain may also be experienced and should not be concerned about unless it worsens for no apparent reason. If so, please contact the office. 5. We will provide appropriate medication within the normal guidelines of their prescribed use. We will also be very cautious and aware of potential abuse and extended duration of patients' medication needs. a. Pain medications are for your comfort and to assist with sleep and rest so that the tissue can heal. They are not provided in order to return to normal activity and should not be used through the day. To do so or worsening pain at night can result from ongoing tissue damage and development of tolerance to the prescribed medicine. 6. Please allow 2-3 days to process refills. Prescriptions will not be mailed but must be picked up at the office. FOLLOW UP VISIT: Keep your scheduled follow-up appointment. Any questions, please call the office at . Pending Studies at Discharge: No Stand-Alone Forms: [employer], Smoking Cessation Medications and DC Order Prescriptions: New oxycodone 5 mg tablet 5 mg PO Q6H PRN (Reason: pain, severe) Qty: 20 RF: 0 tramadol 50 mg tablet 50 mg PO Q6H PRN (Reason: pain, moderate) Qty: 20 RF: 0 Continued enalapril maleate [Vasotec] 10 mg Tablet 20 mg PO BID RF: 0 calcium carbonate-vitamin D3 600 mg(1,500mg) -200 unit Tablet 2 tab PO QAM RF: 0 aspirin 81 mg Tablet,Delayed Release (Dr/Ec) 81 mg PO HS RF: 0 simvastatin 20 mg Tablet 20 mg PO HS RF: 0 magnesium 250 mg Tablet 250 mg PO QAM RF: 0 Discharge Orders: Discharge Order (Routine); Ordered 05/17/20 Ordered By: Byron Aguirre Admission Data Admit Date/Time: 05/14/20 16:16 Attending Provider: Byron Aguirre Admit Provider: Byron Aguirre Primary Care Provider: Erica Uribe Other Providers: Nawaf Wells
[2020-05-17] MEDS: CALCIUM 600MG + VIT D 400 IU TAB PO SCH (09:35)
[2020-05-17] MEDS: ENALAPRIL MALEATE 10 MG TAB PO SCH (09:35)
[2020-05-17] MEDS: MAGNESIUM OXIDE 400 MG TAB PO SCH (09:36)
[2020-05-17] MEDS: DEXAMETHASONE SOD PHOSPHATE 6 MG in SYRINGE 0 ML IV SCH (09:37)
== END 2020-05-17 11:28 | disposition home or self-care (01) | DRG 454 ==
LOC: ASU 09:21 → 3W 16:16